=== PATIENT | male | born 2000 | race Caucasian/White ===

== ENCOUNTER 2023-01-27 11:07 | Emergency (ER) | payer SELFPAY ==
[~2023-01-27] VITALS: Ht 175.3 cm; Wt 79.5 kg
[2023-01-27 11:31] VITALS: BP 124/82; PULSE 76; RESP 16; TEMP 98.2; O2SAT 99
[2023-01-27] MEDS ORDERED: TETANUS, DIPHTHERIA, PERTUSSIS VAC/PF 0.5ML (>10YR OLD) IM ONE (12:45)
[2023-01-27] MEDS ORDERED: BACITRACIN ZINC OINT UDPKT TOP ONE (16:30)
[2023-01-27] MEDS ORDERED: LIDOCAINE HCL/EPINEPHRINE 1%-EPI 1:100,000 20 ML VIAL INFIL ONE (16:30)
[2023-01-27] MEDS ORDERED: LIDOCAINE HCL 1% 20ML VIAL (Pyxis) INJ INFIL ONE (16:45)
== END 2023-01-27 18:52 | disposition left against medical advice (07) ==
LOC: ER 11:31
DX: S01.21XA Laceration without foreign body of nose, initial encounter (principal); Y08.89XA Assault by other specified means, initial encounter; Y93.89 Activity, other specified; Y92.89 Other specified places as the place of occurrence of the external cause; Y99.8 Other external cause status
CPT/HCPCS: 70450; 70486; 99284; Z7610 ×2; 90715; J3490